=== PATIENT | female | born 1955 | race Caucasian/White ===

== ENCOUNTER 2021-02-11 19:36 | Emergency (ER) | payer BC | END 2021-02-11 20:42 | disposition home or self-care (01) | LOC: MADERS 19:36 | DX: S92.022A Displaced fracture of anterior process of left calcaneus, initial encounter for closed fracture (principal); I10 Essential (primary) hypertension; Z87.891 Personal history of nicotine dependence; X50.1XXA Overexertion from prolonged static or awkward postures, initial encounter; Z79.899 Other long term (current) drug therapy | CPT/HCPCS: 28400 ==

== ENCOUNTER 2023-07-10 20:07 | Emergency (ER) | payer BC ==
[2023-07-10 20:49] LABS: Bilirubin Negative (Negative); Blood, Urine Moderate (Negative); Glucose, Urine (Dipstick) Negative (Negative); Ketone, Urine Negative (Negative); Leukocyte Small (Negative); Nitrite Negative (Negative); Protein, Urine (Dipstick) 100 mg/dL (Neg-Trace); Urobilinogen 0.2 mg/dL (Less than 2); pH, Urine 7.5 (5.0-9.0)
[2023-07-10 20:50] LABS: Clarity Cloudy (Clear)
[2023-07-10 20:51] LABS: CAUTI Indications for Culture Dysuria,urgency,freq; RBC/HPF Greater than 50 HPF (0-3); WBC/HPF 21-50 HPF (0-3)
[2023-07-10 20:52] LABS: Urine Culture Reflex Yes Yes
[2023-07-10] MEDS ORDERED: Sterile Water 10 ML ONE (21:02)
[2023-07-10] MEDS ORDERED: cefTRIAXone (ROCEPHIN) 1 GM VIAL ONE (21:02)
== END 2023-07-10 21:16 | disposition home or self-care (01) ==
LOC: MADERS 20:07
DX: N39.0 Urinary tract infection, site not specified (principal); I10 Essential (primary) hypertension; M81.0 Age-related osteoporosis without current pathological fracture; E21.3 Hyperparathyroidism, unspecified; Z87.891 Personal history of nicotine dependence
CPT/HCPCS: 81001; 87086; 96372; 99283; J0696